=== PATIENT | female | born 2005 | race Caucasian/White ===

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

== ENCOUNTER 2023-03-12 21:52 | Emergency (ER) | payer OTHER ==
[~2023-03-12] VITALS: Ht 154.9 cm; Wt 63.5 kg
[~2023-03-12 21:52] MED LIST: IBUP-2213 PO
[2023-03-12 21:57] VITALS: BP 117/67; PULSE 96; RESP 16; TEMP 97.5; O2SAT 100
--- NOTE | 2023-03-12 22:03 | NUR ---
TO BED 7 FOLLOWING TRIAGE AFTER OBTAINING UA
[2023-03-12] MEDS ORDERED: HYDR-5191 PO (22:20)
--- NOTE | 2023-03-12 22:30 | NUR ---
Patient discharged with v/s stable. Written and verbal after care instructions given and explained. Patient alert, oriented and verbalized understanding of instructions. Ambulatory with steady gait. All questions addressed prior to discharge. ID band removed. Patient advised to follow up with PMD. Rx of HYDROCODONE given. Opportunity to ask questions provided and answered.
== END 2023-03-12 22:30 | disposition home or self-care (01) ==
LOC: MED 21:52
DX: L02.211 Cutaneous abscess of abdominal wall (principal); Z79.1 Long term (current) use of non-steroidal anti-inflammatories (NSAID); Z88.0 Allergy status to penicillin
CPT/HCPCS: 81025; 99283

== ENCOUNTER 2023-07-04 19:17 | Emergency (ER) | payer OTHER ==
[~2023-07-04] VITALS: Ht 154.9 cm; Wt 63.5 kg
[~2023-07-04 19:17] MED LIST changes: +HYDR-5191 PO
[2023-07-04 19:25] VITALS: BP 124/79; PULSE 90; RESP 17; TEMP 97.8; O2SAT 99
[2023-07-04] MEDS ORDERED: IBUP-2213 PO (22:33)
[2023-07-04 22:46] VITALS: PULSE 91; RESP 13; O2SAT 99
== END 2023-07-04 22:41 | disposition home or self-care (01) ==
LOC: MED 19:17
DX: S63.696A Other sprain of right little finger, initial encounter (principal); R55 Syncope and collapse; X58.XXXA Exposure to other specified factors, initial encounter; Y93.89 Activity, other specified; Y92.89 Other specified places as the place of occurrence of the external cause; Y99.8 Other external cause status
CPT/HCPCS: 73140; 99283

== ENCOUNTER 2024-05-05 01:59 | Emergency (ER) | payer BC, OTHER ==
[~2024-05-05] VITALS: Ht 154.9 cm; Wt 56.7 kg
[~2024-05-05 01:59] MED LIST changes: +HYDR-5071 PO; -HYDR-5191 PO
[2024-05-05 02:16] VITALS: BP 113/75; PULSE 134; RESP 20; TEMP 99.8; O2SAT 98
--- NOTE | 2024-05-05 02:19 | NUR ---
ambulated to bed 9 after triage
--- NOTE | 2024-05-05 02:23 | NUR ---
SEEN AND EXAMINED BY JORDY WITH ORDERS AND CARRIED OUT
--- NOTE | 2024-05-05 02:35 | NUR ---
MEDICATED PER ERMDS ORDER, TOLERATED WELL.
[2024-05-05 02:45] LABS: BASOPHILS % (AUTO) 0.1 % (0.0-2.0); EOSINOPHILS % (AUTO) 0.1 % (0.0-4.0); HEMATOCRIT 42.4 % (36-48); HEMOGLOBIN 14.1 g/dL (12.0-16.0); LYMPHOCYTES # (AUTO) 0.3 K/uL (2.5-16.5); LYMPHOCYTES % (AUTO) 1.4 % (20.5-51.1); MEAN CORPUSCULAR HEMOGLOBIN 29 pg (27-31); MEAN CORPUSCULAR HGB CONC 33 g/dL (33-37); MEAN CORPUSCULAR VOLUME 87.5 fL (80-94); MONOCYTES # (AUTO) 0.5 K/uL (0.8-1.0); MONOCYTES % (AUTO) 2.5 % (1.7-9.3); NEUTROPHILS # (AUTO) 17.8 K/uL (1.8-7.7); NEUTROPHILS % (AUTO) 95.9 % (42.2-75.2); PLATELET COUNT (AUTO) 273 K/uL (140-450); RED BLOOD CELL COUNT(AUTO) 4.84 MIL/uL (4.20-5.40); RED CELL DISTRIBUTION WIDTH 13.5 % (11.6-13.7); WHITE BLOOD COUNT (AUTO) 18.6 K/uL (4.5-11.0)
[2024-05-05] MEDS: ONDANSETRON 4 MG/2 ML VIAL IVP ONE (02:47)
[2024-05-05] MEDS: NACL 0.9% 1,000 ML IV ONE (02:48)
[2024-05-05 02:57] LABS: ANION GAP 11.6 (8-16); CALCIUM 9.7 mg/dL (8.5-10.1); CARBON DIOXIDE 25.8 mmol/L (21-32); CREATININE 0.9 mg/dL (0.6-1.3); POTASSIUM 4.4 mmol/L (3.5-5.1)
[2024-05-05 03:01] LABS: ALBUMIN 4.3 g/dL (3.4-5.0); BILIRUBIN,DIRECT 0.1 mg/dL (0.0-0.3); TOTAL BILIRUBIN 0.4 mg/dL (0.0-1.0); TOTAL PROTEIN, SERUM 8.8 g/dL (6.4-8.2)
--- NOTE | 2024-05-05 03:25 | NUR ---
URINE SPICEMEN SENT TO LAB
[2024-05-05 03:36] LABS: APPEARANCE,URINE CLEAR (CLEAR); BILIRUBIN,URINE NEGATIVE (NEGATIVE); BLOOD, URINE TRACE-L (NEGATIVE); COLOR,URINE YELLOW (YELLOW); LEUKOCYTE ESTERASE ,URINE NEGATIVE (NEGATIVE); NITRITE, URINE NEGATIVE (NEGATIVE); PROTEIN,URINE TRACE (NEGATIVE); UGLUCOSE NEGATIVE (NEGATIVE); UROBILINOGEN,URINE 0.2 EU/dL (0.2 - 1)
[2024-05-05 03:44] LABS: BACTERIA,URINE 10-30 (MOD) /HPF (None Seen); MUCUS,URINE 1+ /LPF (None Seen); SQUAMOUS EPITHELIAL CELL,UR 4-10 (MOD) /LPF (0-3 (FEW)); WBC,URINE 0-5 /HPF (0-5)
--- NOTE | 2024-05-05 04:20 | NUR ---
ALL RESULTS BACK AND NOTED BY ERMD AND FOR D/C.
[2024-05-05] MEDS ORDERED: ONDA-188 SL (04:25)
[2024-05-05 04:33] VITALS: BP 120/79; PULSE 92; RESP 18; TEMP 98.1; O2SAT 98
--- NOTE | 2024-05-05 04:33 | NUR ---
Patient discharged with v/s stable. Written and verbal after care instructions given and explained. Patient alert, oriented and verbalized understanding of instructions. Ambulatory with steady gait. All questions addressed prior to discharge. ID band removed. Patient advised to follow up with PMD. Rx of ZOFRAN ODT given. Patient educated on indication of medication including possible reaction and side effects. Opportunity to ask questions provided and answered.
== END 2024-05-05 04:33 | disposition home or self-care (01) ==
LOC: MED 01:59
DX: A05.9 Bacterial foodborne intoxication, unspecified (principal); Z79.1 Long term (current) use of non-steroidal anti-inflammatories (NSAID); Z79.899 Other long term (current) drug therapy; Z88.0 Allergy status to penicillin
CPT/HCPCS: 36415; 80048; 80076; 81001; 81025; 83690; 85025; 87086; 96361; 96374; 99283; J2405; J7030